=== PATIENT | female | born 1985 | race Caucasian/White ===

== ENCOUNTER 2019-12-01 20:11 | Emergency (ER) | payer BC ==
--- NOTE | 2019-12-01 21:17 | EDM.PDOC ---
ED HPI GENERAL MEDICAL PROBLEM - General Chief Complaint: Gastrointestinal Problem Stated Complaint: VOMITING Time Seen by Provider: 12/01/19 21:13 Source of Information: Reports: Patient History Limitations: Reports: No Limitations - History of Present Illness INITIAL COMMENTS - FREE TEXT/NARRATIVE: HISTORY AND PHYSICAL: History of present illness: Patient is a 34-year-old female presents to the ED with complaint of vomiting and diarrhea. Patient states she started having nonbloody vomiting and diarrhea for the past 5 hours. She states she has been taking clindamycin and thinks this is causing her symptoms. She is on day 9 of this medication for cellulitis on her abdomen. She denies fevers, chills, abdominal pain, cough, chest pain, shortness of breath. Review of systems: As per history of present illness and below otherwise all systems reviewed and negative. Past medical history: As per history of present illness and as reviewed below otherwise noncontributory. Surgical history: As per history of present illness and as reviewed below otherwise noncontributory. Social history: No reported history of drug or alcohol abuse. Family history: As per history of present illness and as reviewed below otherwise noncontributory. Physical exam: General: Patient sitting comfortably in no acute distress and nontoxic appearing HEENT: Atraumatic, normocephalic, pupils reactive, negative for conjunctival pallor or scleral icterus, mucous membranes moist, throat clear, neck supple, nontender, trachea midline. No meningeal signs. Lungs: Clear to auscultation, breath sounds equal bilaterally, chest nontender. Heart: S1S2, regular, negative for clicks, rubs, or overt murmur. Abdomen: Soft, nondistended, nontender. Negative for masses or hepatosplenomegaly. Negative for costovertebral tenderness. No rigidity, rebound , guarding. Pelvis: Stable nontender. Genitourinary: Deferred. Rectal: Deferred. Skin: Mild cellulitis to the left lower abdomen with minimal erythema and warmth. No purulence Extremities: Atraumatic, negative for cords or calf pain. Neurovascular unremarkable. Neuro: Awake, alert, oriented. Cranial nerves II through XII unremarkable. Cerebellum unremarkable. Motor and sensory unremarkable throughout. Exam nonfocal. Notes: Diagnostics: none Therapeutics: none Prescriptions: Keflex, zofran Impression: gastroenteritis, medical side effect Plan: Stop clindamycin and start keflex as instructed You may take zofran as needed for vomiting Drink plenty of small sips of fluids throughout the day and bland food as tolerated Follow-up with primary care provider Return to ED as needed as discussed Definitive disposition and diagnosis as appropriate pending reevaluation and review of above. Abdomen Pain Score (Numeric/FACES): 4 - Related Data Allergies Allergy/AdvReac Type Severity Reaction Status Date / Time Sulfa (Sulfonamide Allergy Vomiting Verified 12/01/19 21:04 Antibiotics) Home Meds: Home Meds Cephalexin [Keflex] 500 mg PO TID #15 capsule 12/01/19 [Rx] Clindamycin HCl 300 mg PO TID 12/01/19 [History] Ondansetron [Zofran ODT] 4 mg PO Q6H PRN #10 tab.dis 12/01/19 [Rx] Past Medical History - Past Health History Medical/Surgical History: Denies Medical/Surgical History Social & Family History - Family History Family Medical History: Noncontributory - Tobacco Use Smoking Status *Q: Never Smoker - Recreational Drug Use Recreational Drug Use: No ED ROS GENERAL - Review of Systems Review Of Systems: Comprehensive ROS is negative, except as noted in HPI. ED EXAM, GI/ABD - Physical Exam Exam: See Below (see dictation) Course - Vital Signs Last Recorded V/S: Last Vital Signs Temp 96.7 F L 12/01/19 21:25 Pulse 60 12/01/19 21:25 Resp 18 12/01/19 21:25 BP 129/59 L 12/01/19 21:25 Pulse Ox 98 12/01/19 21:25 Departure - Departure Time of Disposition: 21:14 Disposition: Home, Self-Care 01 Condition: Good Clinical Impression: Viral gastroenteritis, Medication side effect - Discharge Information Prescriptions: Cephalexin [Keflex] 500 mg PO TID #15 capsule Ondansetron [Zofran ODT] 4 mg PO Q6H PRN #10 tab.dis PRN Reason: Nausea/Vomiting Instructions: Viral Gastroenteritis, Adult, [id number] Referrals: PCP,None [Primary Care Provider] - Forms: ED Department Discharge Additional Instructions: The following information is given to patients seen in the emergency department who are being discharged to home. This information is to outline your options for follow-up care. We provide all patients seen in our emergency department with a follow-up referral. The need for follow-up, as well as the timing and circumstances, are variable depending upon the specifics of your emergency department visit. If you don't have a primary care physician on staff, we will provide you with a referral. We always advise you to contact your personal physician following an emergency department visit to inform them of the circumstance of the visit and for follow-up with them and/or the need for any referrals to a consulting specialist. The emergency department will also refer you to a specialist when appropriate. This referral assures that you have the opportunity for follow-up care with a specialist. All of these measure are taken in an effort to provide you with optimal care, which includes your follow-up. Under all circumstances we always encourage you to contact your private physician who remains a resource for coordinating your care. When calling for follow-up care, please make the office aware that this follow-up is from your recent emergency room visit. If for any reason you are refused follow-up, please contact the [facility] Emergency Department at and asked to speak to the emergency department charge nurse. [facility] [address] [place] [address] [id number] Stop clindamycin and start keflex as instructed You may take zofran as needed for vomiting Drink plenty of small sips of fluids throughout the day and bland food as tolerated Follow-up with primary care provider Return to ED as needed as discussed Sepsis Event Note - Evaluation Sepsis Screening Result: No Definite Risk - Focused Exam Vital Signs: Vital Signs Temp Pulse Resp BP Pulse Ox 12/01/19 21:25 96.7 F L 60 18 129/59 L 98 12/01/19 20:57 97.8 F 80 18 139/69 95 Date Exam was Performed: 12/01/19 Time Exam was Performed: 21:39
== END 2019-12-01 21:25 | disposition home or self-care (01) ==
LOC: MW.ED 20:11
DX: K52.1 Toxic gastroenteritis and colitis (principal); A08.4 Viral intestinal infection, unspecified; T36.8X5A Adverse effect of other systemic antibiotics, initial encounter; L03.311 Cellulitis of abdominal wall
CPT/HCPCS: 99283